=== PATIENT | female | born 1990 | race Hispanic/Latino ===

== ENCOUNTER 2018-05-02 07:46 | Outpatient (CLI) | payer OTHER | END 2018-05-02 07:47 | disposition home or self-care (01) | LOC: BICULT 07:46 | PROVIDERS: ATTEND Obstetrics & Gynecology | DX: Z34.82 Encounter for supervision of other normal pregnancy, second trimester (principal); Z3A.28 28 weeks gestation of pregnancy | CPT/HCPCS: 76805 ==

== ENCOUNTER 2018-07-20 01:53 | Inpatient (IN) | payer MEDICAID, OTHER, SELFPAY ==
[2018-07-20 02:28] VITALS: BMI 32.5
[2018-07-20] MEDS ORDERED: HYDROcodone/Acetaminophen 5/325 mg Tablet PO PRN ×3 (02:48→12:13)
[2018-07-20] MEDS ORDERED: Ibuprofen 800 MG TAB PO PRN (02:48)
[2018-07-20] MEDS ORDERED: NS / Oxytocin 40 units/1000ml 1,000 ML IV PRN (02:48)
[2018-07-20] MEDS ORDERED: Lidocaine 1% (PF) 30 ML VIAL SC PRN (02:48)
[2018-07-20] MEDS ORDERED: Diphenoxylate HCl/Atropine Tablet PO PRN ×2 (02:48)
[2018-07-20] MEDS ORDERED: Carboprost 250 MCG/ML AMP IM PRN (02:48)
[2018-07-20] MEDS ORDERED: Misoprostol 200 MCG TAB PR PRN (02:48)
[2018-07-20] MEDS ORDERED: Acetaminophen 500 MG TAB PO PRN (02:48)
[2018-07-20] MEDS ORDERED: Methylergonovine 0.2 MG/ML VIAL IM PRN (02:48)
[2018-07-20] MEDS ORDERED: Ondansetron PF 4 MG/2 ML Vial IVP PRN (02:48)
[2018-07-20] MEDS ORDERED: Butorphanol Tartrate 1 MG/ML VIAL SLOW IVP PRN (02:48)
[2018-07-20] MEDS ORDERED: Promethazine HCl 25 MG/ML VIAL IM PRN (02:48)
--- NOTE | 2018-07-20 02:51 | PDOC.LDHP ---
Labor and Delivery H&P Chief complaint: contractions HPI: 28 y/o at 40w5d, patient of Dr. العلي, presents with regular ctx. Denies VB, LOF, or decreased FM. Was 1cm in office at last check. ROS neg for HEENT, CV, pulm, GI, , neuro, psych, skin, musculoskeletal, or constitutional symptoms other than mentioned above. OB History Details: 1 prior term Current complications: none Past Medical History: None Current medications: pre- vitamins Previous surgical history: none Allergies/Adverse Reactions: Allergies Allergy/AdvReac Type Severity Reaction Status Date / Time No Known Drug Allergies Allergy Verified 07/20/18 02:29 Social history: none - Physical Exam Vital signs reviewed and normal: yes General: NAD, resting Lungs: nonlabored breathing Abdomen: gravid Extremeties: no edema FHT: category 1 (130s, mod variability, + accels, no decels) [place] contractions every: 3 - Vaginal Exam cm dilated: 4 Effacement: 75% Station: -2 - OB Labs GBS: negative - Assessment L&D Assessment: term patient in labor - Plan Plan: admit to L&D, labor augmentation if indicated, informed consent obtained, anesthesia consult for pain management (if desired)
[2018-07-20] MEDS: Lactated Ringer's 1,000 ML IV SCH ×2 (03:05→10:52)
[2018-07-20 03:26] LABS: Hemoglobin 11.9 g/dL (12.0-16.0); Mean Corpuscular HGB CONC 34.9 g/dL (32.0-36.0); Mean Corpuscular Hemoglobin 31.8 pg (27.0-31.0); Mean Corpuscular Volume 91.1 fL (78.0-98.0); Mean Platelet Volume 9.1 fL (7.4-10.4); Platelet Count 187 thou/uL (130-400); RBC Distribution Width 13.3 % (11.5-14.5); Red Blood Cell (RBC) Count 3.75 mill/uL (4.20-5.40)
[2018-07-20 04:04] LABS: Hep B Surf Ag Non-Reactive S/CO (NonReactive)
[2018-07-20 04:33] LABS: Syphilis Antibody Nonreactive (Nonreactive); Syphilis Antibody Index 0.03 S/CO (<1.00 Non-Reactive)
--- NOTE | 2018-07-20 07:35 | PDOC.LDPN ---
Labor & Delivery Progress Note - Subjective Subjective: painful contractions - Objective Vital signs reviewed and normal: yes General: NAD Uterine fundus: non tender Dilation: 8 Effacement: 75% Station: -1 FHT: category 1 (120s, mod liam, +accels, no decels ) [place] contractions every: q5-6 min AROM: clear fluid - Assessment (1) 40 weeks gestation of Code(s): Z3A.40 - 40 WEEKS GESTATION OF Current Visit: Yes Status : Acute (2) Active labor Code(s): [id number] - Current Visit: Yes Status: Acute Plan: continue plan of care
[2018-07-20] MEDS ORDERED: NS w/ Oxytocin 10 units 500 ML ONE (10:11)
[2018-07-20] MEDS ORDERED: NS w/ Oxytocin 10 units 500 ML IV SCH (10:30)
[2018-07-20] MEDS ORDERED: Fentanyl 4 mcg/Bup 0.1% Cadd 100 ML ONE (10:45)
--- NOTE | 2018-07-20 11:34 | PDOC.OPDEL ---
OB Operative/Delivery Note Delivery Dr/Surgeon: Preethi العلي DO Pre-Delivery Diagnosis: active labor Procedure/Post Delivery Dx: spontaneous vaginal delivery Weeks gestation: 40 Anesthesia: none - Findings A Sex: female - 1 min: 8 - 5 min: 9 - Additional Findings/Plan Placenta delivered: spontaneous Repaired Obstetrical Laceration: none Estimated blood loss: QBL 182 mL Compilations/Other Findings: Infant in cephalic in OA position. Normal appearing placenta Post delivery plan: routine recovery
[2018-07-20] MEDS ORDERED: Benzocaine/Menthol 20-0.5% 60 ML CAN TOP PRN (12:13)
[2018-07-20] MEDS ORDERED: Milk Of Magnesia 30 ML UDCUP PO PRN (12:13)
[2018-07-20] MEDS ORDERED: Zolpidem Tartrate 5 MG TAB PO PRN (12:13)
[2018-07-20] MEDS ORDERED: Preparation H Ointment 28 GM TUBE PR PRN (12:13)
[2018-07-20] MEDS ORDERED: NS / Oxytocin 40 units/1000ml 1,000 ML IV SCH (12:13)
[2018-07-20] MEDS ORDERED: diphenhydrAMINE 25 MG CAP PO PRN (12:13)
[2018-07-20] MEDS ORDERED: Lanolin Ointment 7 GM TUBE TOP PRN (12:13)
[2018-07-20] MEDS: Ibuprofen 800 MG TAB PO SCH ×2 (14:16→21:20)
[2018-07-20] MEDS: Ferrous Sulfate 325 MG TAB PO SCH (17:09)
[2018-07-20] MEDS: Docusate Calcium (SURFAK) 240 MG CAP PO SCH (21:20)
[2018-07-21 06:19] LABS: Hemoglobin 11.1 g/dL (12.0-16.0); Mean Corpuscular HGB CONC 33.4 g/dL (32.0-36.0); Mean Corpuscular Hemoglobin 31.1 pg (27.0-31.0); Mean Corpuscular Volume 93.2 fL (78.0-98.0); Mean Platelet Volume 8.8 fL (7.4-10.4); Platelet Count 188 thou/uL (130-400); RBC Distribution Width 13.5 % (11.5-14.5); Red Blood Cell (RBC) Count 3.58 mill/uL (4.20-5.40); White Blood Cell (WBC) Count 9.9 thou/uL (4.8-10.8)
[2018-07-21] MEDS: Ibuprofen 800 MG TAB PO SCH ×2 (06:24→14:46)
[2018-07-21] MEDS: Ferrous Sulfate 325 MG TAB PO SCH ×2 (07:33→17:21)
--- NOTE | 2018-07-21 07:59 | PDOC.PP ---
Post Progress Note Post Day #: 1 Subjective: No concerns. Breast feeding. Minimal pain and lochia. PO intake tolerated: yes Flatus: yes Ambulation: yes Vital Signs (12 hours) Temp Pulse Resp BP Pulse Ox 07/21/18 06:00 97.5 F L 58 L 18 105/58 L 07/21/18 00:00 97.8 F 64 18 110/57 L 07/20/18 20:00 99.0 F 64 16 114/58 L 96 Weight Weight 172 lb - Physical Examination General: NAD Cardiovascular: RRR Respiratory: non-labored breathing Abdominal: no distention, appropriately TTP Fundus firm & at: below umbilicus Extremities: negative homans (B) Neurological: no gross focal deficits Psychiatric: A&Ox3, normal affect Result Diagrams: 07/21/18 05:32 Additional Labs: Post Labs Blood Type A POSITIVE 07/20/18 03:05 Hep Bs Antigen Non-Reactive S/CO (NonReactive) 07/20/18 03:05 (1) 40 weeks gestation of Code(s): Z3A.40 - 40 WEEKS GESTATION OF Status: Resolved (2) Active labor Code(s): UPQ6275 - Status: Resolved (3) Spontaneous Vaginal Delivery Code(s): O80 - ENCOUNTER FOR FULL-TERM UNCOMPLICATED DELIVERY Status: Acute - Assessment/Plan PPD1 VSSAF D/C home today with infant.
[2018-07-21] MEDS: Docusate Calcium (SURFAK) 240 MG CAP PO SCH (08:29)
[2018-07-21 08:48] VITALS: BP 101/50; TEMP 97.8
[2018-07-21] MEDS ORDERED: Prenatal Vitamin 1 TAB PO SCH (09:00)
== END 2018-07-21 17:55 | disposition home or self-care (01) | DRG 807 ==
LOC: L&D/OP 01:53 → L&D 03:03 → 3SW 12:53
PROVIDERS: ADMIT Obstetrics & Gynecology; ATTEND Obstetrics & Gynecology
PROC: 10E0XZZ Delivery of Products of Conception, External Approach (ICD-10-PCS; principal; 2018-07-20)
PROC: 10907ZC Drainage of Amniotic Fluid, Therapeutic from Products of Conception, Via Natural or Artificial Opening (ICD-10-PCS; 2018-07-20)
DX: O80 Encounter for full-term uncomplicated delivery (principal); Z37.0 Single live birth; Z3A.40 40 weeks gestation of pregnancy
CPT/HCPCS: 36415; 85027; 86780; 86850; 86900; 86901; 87340; 99285; J0595; J2001

== ENCOUNTER 2020-04-09 22:30 | Inpatient (IN) | payer MEDICAID, OTHER ==
[2020-04-09] MEDS ORDERED: HYDROcodone/Acetaminophen 5/325 mg Tablet PO PRN (22:59)
[2020-04-09] MEDS ORDERED: NS / Oxytocin 40 units/1000ml 1,000 ML IV PRN (22:59)
[2020-04-09] MEDS ORDERED: hydrALAZINE 20 MG/ML VIAL SLOW IVP PRN (22:59)
[2020-04-09] MEDS ORDERED: Butorphanol Tartrate 1 MG/ML VIAL SLOW IVP PRN (22:59)
[2020-04-09] MEDS ORDERED: Promethazine HCl 25 MG/ML VIAL IM PRN (22:59)
[2020-04-09] MEDS ORDERED: Lidocaine 1% (PF) 30 ML VIAL SC PRN (22:59)
[2020-04-09] MEDS ORDERED: Ondansetron PF 4 MG/2 ML Vial IVP PRN (22:59)
[2020-04-09] MEDS ORDERED: Ibuprofen 800 MG TAB PO PRN (22:59)
[2020-04-09] MEDS ORDERED: Lactated Ringer's 1,000 ML IV SCH (23:00)
[2020-04-09] MEDS ORDERED: Fentanyl 4 mcg/Bup 0.1% Cadd 100 ML ONE (23:21)
[2020-04-09 23:24] LABS: Hemoglobin 13.5 g/dL (12.0-16.0); Mean Corpuscular HGB CONC 33.7 g/dL (32.0-36.0); Mean Corpuscular Hemoglobin 31.1 pg (27.0-31.0); Mean Corpuscular Volume 92.2 fL (78.0-98.0); Platelet Count 170 thou/uL (130-400); RBC Distribution Width 14.1 % (11.5-14.5); Red Blood Cell (RBC) Count 4.34 mill/uL (4.20-5.40); White Blood Cell (WBC) Count 10.4 thou/uL (4.8-10.8)
[2020-04-10 00:05] LABS: HBSAg Index 0.17 S/CO (0-0.99); Hep B Surf Ag Non-Reactive S/CO (NonReactive); Syphilis Antibody Nonreactive (Nonreactive); Syphilis Antibody Index 0.04 S/CO (<1.00 Non-Reactive)
[2020-04-10 00:48] VITALS: BMI 31.8
[2020-04-10] MEDS ORDERED: NS / Oxytocin 40 units/1000ml 1,000 ML ONE (01:18)
[2020-04-10] MEDS ORDERED: Lidocaine 1% (PF) 30 ML VIAL ONE (01:18)
[2020-04-10] MEDS ORDERED: Misoprostol 200 MCG TAB ONE (02:16)
[2020-04-10] MEDS ORDERED: Lactated Ringer's 500 ML IV PRN (03:52)
[2020-04-10] MEDS ORDERED: Acetaminophen 325 MG TAB PO PRN (03:52)
[2020-04-10] MEDS ORDERED: Ondansetron PF 4 MG/2 ML Vial IVP PRN ×2 (03:52→05:49)
[2020-04-10] MEDS ORDERED: Naloxone HCl 0.4 mg/ml Vial IVP PRN ×2 (03:52)
[2020-04-10] MEDS ORDERED: diphenhydrAMINE 50 MG/ML VIAL IVP PRN (03:52)
[2020-04-10] MEDS ORDERED: Promethazine HCl 25 MG/ML VIAL IM PRN (03:52)
[2020-04-10] MEDS ORDERED: EPHEDRINE 25 MG/5 ML SYRINGE SLOW IVP PRN (03:52)
[2020-04-10] MEDS ORDERED: Fentanyl 4 mcg/Bupivacaine 0.1% Cassette 100 ML EPIDURAL SCH (04:00)
[2020-04-10] MEDS ORDERED: Communication Order-Pharmacy FS SCH (04:00)
[2020-04-10] MEDS ORDERED: Benzocaine-Menthol 82.5 ML CAN TOP PRN (05:49)
[2020-04-10] MEDS ORDERED: hydrALAZINE 20 MG/ML VIAL SLOW IVP PRN (05:49)
[2020-04-10] MEDS ORDERED: Misoprostol 200 MCG TAB VAG PRN (05:49)
[2020-04-10] MEDS ORDERED: NS / Oxytocin 40 units/1000ml 1,000 ML IV SCH (05:49)
[2020-04-10] MEDS ORDERED: Methylergonovine 0.2 MG/ML VIAL IM PRN (05:49)
[2020-04-10] MEDS ORDERED: Bisacodyl 10 MG SUPP PR PRN (05:49)
[2020-04-10] MEDS ORDERED: HYDROcodone/Acetaminophen 5/325 mg Tablet PO PRN ×4 (05:49→13:07)
[2020-04-10] MEDS ORDERED: Lanolin Ointment 7 GM TUBE TOP PRN (05:49)
[2020-04-10] MEDS ORDERED: Milk Of Magnesia 30 ML UDCUP PO PRN (05:49)
[2020-04-10] MEDS: Ibuprofen 800 MG TAB PO SCH ×3 (06:29→20:52)
[2020-04-10] MEDS: Ferrous Sulfate 325 MG TAB PO SCH ×2 (08:53→16:22)
[2020-04-10] MEDS ORDERED: Measles/Mumps/Rubella 10 MCG/0.5 ML VIAL SC ONE (09:00)
[2020-04-10] MEDS ORDERED: Adacel (T-DAP) 0.5 ML SYRINGE IM ONE (09:00)
[2020-04-10] MEDS: Docusate Calcium (SURFAK) 240 MG CAP PO SCH ×2 (09:24→20:52)
[2020-04-10] MEDS: Prenatal Vitamin 1 TAB PO SCH (09:24)
[2020-04-10 12:30] LABS: SARS-CoV-2 MS2 Positive; SARS-CoV-2 N Gene Negative; SARS-CoV-2 S Gene Negative; SARS-CoV-2 by NAA Not Detected (NotDetected); SARS-CoV-2 orf1ab Negative
[2020-04-10 20:11] LABS: SARS-CoV-2 IgG Ab Reactive (NonReactive); SARS-CoV-2 IgG Index 3.82 S/CO (< 1.40)
[2020-04-11] MEDS: Ibuprofen 800 MG TAB PO SCH ×2 (05:58→13:45)
[2020-04-11] MEDS: Ferrous Sulfate 325 MG TAB PO SCH (08:19)
[2020-04-11 08:29] VITALS: BP 100/51; TEMP 97.6
[2020-04-11] MEDS: Prenatal Vitamin 1 TAB PO SCH (10:29)
[2020-04-11] MEDS: Docusate Calcium (SURFAK) 240 MG CAP PO SCH (10:29)
--- NOTE | 2020-04-11 12:03 | PDOC.LDHP ---
Labor and Delivery H&P Allergies/Adverse Reactions: Allergies Allergy/AdvReac Type Severity Reaction Status Date / Time No Known Drug Allergies Allergy Verified 04/10/20 00:13
== END 2020-04-11 16:10 | disposition home or self-care (01) | DRG 807 ==
LOC: L&D/OP 22:30 → L&D 23:44 → 3SW 04-10 07:37
PROVIDERS: ADMIT Obstetrics & Gynecology; ATTEND Obstetrics & Gynecology
PROC: 10E0XZZ Delivery of Products of Conception, External Approach (ICD-10-PCS; principal; 2020-04-10)
PROC: 10907ZC Drainage of Amniotic Fluid, Therapeutic from Products of Conception, Via Natural or Artificial Opening (ICD-10-PCS; 2020-04-10)
DX: O48.0 Post-term pregnancy (principal); Z37.0 Single live birth; Z3A.41 41 weeks gestation of pregnancy; Z20.828 Contact with and (suspected) exposure to other viral communicable diseases
CPT/HCPCS: 36415; 51702; 85027; 86769; 86780; 86850; 86900; 86901; 87340; 87635; 99285; J2001; U0003